=== PATIENT | male | born 1970 | race Caucasian/White ===

== ENCOUNTER 2016-09-10 18:58 | Emergency (ER) | payer MEDICARE ==
[~2016-09-10] VITALS: Ht 193 cm; Wt 72.5 kg
[~2016-09-10 18:58] MED LIST: CLIN-73 PO; IBUP-1542 PO; PERP8TAB PO; QUET400T PO
[2016-09-10 19:32] VITALS: Ht 193 cm; Wt 72.5 kg
[2016-09-10] MEDS ORDERED: PERP8TAB PO (19:57)
[2016-09-10] MEDS ORDERED: QUET400T PO (19:57)
--- NOTE | 2016-09-10 20:03 | ERD ---
ER Documentation Chief Complaint Date/Time DATE: 09/10/16 TIME: 20:00 Chief Complaint medication refill HPI 46-year-old male presents here in emergency department for medication refill, history of depression, is running out of his Seroquel and Perphenazine, patient denies any suicidal or homicidal ideation. Patient denies any other symptoms. Patient denies any hallucination or delusion. ROS All systems reviewed and are negative except as per history of present illness. Medications Home Meds Active Scripts Quetiapine Fumarate* (Seroquel*) 400 Mg Tablet, 400 MG PO DAILY, #20 TAB Prov:ROGER HARPER OPTHALMIC TECH 09/10/16 Perphenazine* (Perphenazine*) 8 Mg Tablet, 8 MG PO BID, #20 TAB Prov:ROGER HARPER OPTHALMIC TECH 09/10/16 Quetiapine Fumarate* (Seroquel*) 400 Mg Tablet, 400 MG PO QHS, #20 TAB Prov:LIORUMU C 04/24/16 Ibuprofen* (Ibuprofen*) 600 Mg Tablet, 600 MG PO Q6 for 5 Days, TAB Prov:LIOR,UMU C 04/24/16 Clindamycin Hcl* (Clindamycin Hcl*) 300 Mg Capsule, 300 MG PO TID for 10 Days, CAP Prov:LIOR,UMU C 04/24/16 Allergies Allergies: Coded Allergies: aspirin (Verified Allergy, Mild, HEADACHE SWELLING, 09/10/16) PMhx/Soc History of Surgery: Yes (right knee surgery) Anesthesia Reaction: No Hx Neurological Disorder: No Hx Respiratory Disorders: No Hx Cardiac Disorders: No Hx Psychiatric Problems: Yes (schizoaffective behavior and depression) Hx Miscellaneous Medical Probl: Yes (PARANOIA) Hx Alcohol Use: Yes Hx Substance Use: Yes Hx Tobacco Use: Yes FmHx Family History: No coronary disease, No diabetes, No other Physical Exam Vitals Vital Signs Date Time Temp Pulse Resp B/P Pulse Ox O2 Delivery O2 Flow Rate FiO2 09/10/16 19:32 98.5 92 20 136/83 98 Physical Exam GENERAL: The patient is well developed and appropriate for usual state of health, in no apparent distress. CHEST: Clear to auscultation bilaterally. There are no rales, wheezes or rhonchi. HEART: Regular rate and rhythm. No murmurs, clicks, rubs or gallops. No S3 or S4. ABDOMEN: Soft, nontender and nondistended. Good bowel sounds. No rebound or guarding. No gross peritonitis. No gross organomegaly or masses. No Molina sign or McBurney point tenderness. BACK: No midline or flank tenderness. EXTREMITIES: Equal pulses bilaterally. There is no peripheral clubbing, cyanosis or edema. No focal swelling or erythema. Full range of motion. Grossly neurovascularly intact. NEURO: Alert and oriented. Cranial nerves 2-12 intact. Motor strength in all 4 extremities with 5/5 strength. Sensation grossly intact. Normal speech and gait. SKIN: There is no apparent rash or petechia. The skin is warm and dry. HEMATOLOGIC AND LYMPHATIC: There is no evidence of excessive bruising or lymphedema. No gross cervical, axillary, or inguinal lymphadenopathy. PSYCHIATRIC: Patient is calm and cooperative. No verbalization of homicidal or suicidal ideations. Procedures/MDM Medical decision making: Patient is here for medication refill, this time, no symptoms of any psychiatric emergencies, patient is stable, patient does not verbalize homicidal or suicidal ideation. Patient has normal affect. Acting appropriately at this time. Patient was given for 20 day supply of Seroquel and perphenazine, is advised to see a certified legal secretary specialist within 1-2 days or further medication management and referral. Patient was advised to return to emergency department for homicidal or suicidal ideations, hallucinations delusions, any other worsening symptoms. Disposition: Home. Stable. Departure Diagnosis: Primary Impression: Encounter for medication refill Additional Impression: History of depression Condition: Stable Patient Instructions: Taking Medicine Safely, Quetiapine Fumarate Oral tablet Referrals: [facility] YOU HAVE RECEIVED A MEDICAL SCREENING EXAM AND THE RESULTS INDICATE THAT YOU DO NOT HAVE A CONDITION THAT REQUIRES URGENT TREATMENT IN THE EMERGENCY DEPARTMENT. FURTHER EVALUATION AND TREATMENT OF YOUR CONDITION CAN WAIT UNTIL YOU ARE SEEN IN YOUR DOCTORS OFFICE WITHIN THE NEXT 1-2 DAYS. IT IS YOUR RESPONSIBILITY TO MAKE AN APPOINTMENT FOR FOLOW-UP CARE. IF YOU HAVE A PRIMARY DOCTOR --you should call your primary doctor and schedule an appointment IF YOU DO NOT HAVE A PRIMARY DOCTOR YOU CAN CALL OUR PHYSICIAN REFERRAL HOTLINE AT IF YOU CAN NOT AFFORD TO SEE A PHYSICIAN YOU CAN CHOSE FROM THE FOLLOWING [facility] [address] [facility] [address] [facility] [address] [facility] [address] [facility] [address] [facility] [address] [facility] YOU HAVE RECEIVED A MEDICAL SCREENING EXAM AND THE RESULTS INDICATE THAT YOU DO NOT HAVE A CONDITION THAT REQUIRES URGENT TREATMENT IN THE EMERGENCY DEPARTMENT. FURTHER EVALUATION AND TREATMENT OF YOUR CONDITION CAN WAIT UNTIL YOU ARE SEEN IN YOUR DOCTORS OFFICE WITHIN THE NEXT 1-2 DAYS. IT IS YOUR RESPONSIBILITY TO MAKE AN APPOINTMENT FOR FOLOW-UP CARE. IF YOU HAVE A PRIMARY DOCTOR --you should call your primary doctor and schedule and appointment IF YOU DO NOT HAVE A PRIMARY DOCTOR YOU CAN CALL OUR PHYSICIAN REFERRAL HOTLINE AT . IF YOU CAN NOT AFFORD TO SEE A PHYSICIAN YOU CAN CHOSE FROM THE FOLLOWING [facility] INSTITUTIONS: [facility] [address] [place] [address] [facility] [address] [place] [address] [facility] [address] [place] [address] ROGER HARPER NP September 10, 2016 20:03
== END 2016-09-10 20:02 | disposition home or self-care (01) ==
LOC: E/R 18:58
DX: Z76.0 Encounter for issue of repeat prescription (principal); F17.210 Nicotine dependence, cigarettes, uncomplicated; Z86.59 Personal history of other mental and behavioral disorders

== ENCOUNTER 2016-09-30 01:11 | Emergency (ER) | payer MEDICARE ==
[~2016-09-30] VITALS: Ht 193 cm; Wt 69.5 kg
[2016-09-30 01:31] VITALS: Ht 193 cm; Wt 69.5 kg
--- NOTE | 2016-09-30 02:21 | ERA ---
ER Documentation Chief Complaint Date/Time DATE: 09/30/16 TIME: 02:20 Chief Complaint Suicidal HPI The patient is a 46-year-old male, presenting to the ER because of suicidal ideation, hallucination. He does not have any plan, denies suicidal ideation. He denies headache, neck pain, chest pain, abdominal pain, vomiting dysuria, diarrhea. He has not been taking his medication Past medical history: Bipolar ROS All systems reviewed and are negative except as per history of present illness. Medications Home Meds Active Scripts Quetiapine Fumarate* (Seroquel*) 400 Mg Tablet, 400 MG PO DAILY, #20 TAB Prov:ROGER HARPER UPSETTER HELPER 09/10/16 Perphenazine* (Perphenazine*) 8 Mg Tablet, 8 MG PO BID, #20 TAB Prov:ROGER HARPER. UPSETTER HELPER 09/10/16 Discontinued Scripts Quetiapine Fumarate* (Seroquel*) 400 Mg Tablet, 400 MG PO QHS, #20 TAB Prov:UMU TINAJERO C 04/24/16 Ibuprofen* (Ibuprofen*) 600 Mg Tablet, 600 MG PO Q6 for 5 Days, TAB Prov:LIOR,UMU C 04/24/16 Clindamycin Hcl* (Clindamycin Hcl*) 300 Mg Capsule, 300 MG PO TID for 10 Days, CAP Prov:LIORUMU C 04/24/16 Allergies Allergies: Coded Allergies: aspirin (Unverified Allergy, Mild, HEADACHE SWELLING, 09/30/16) PMhx/Soc History of Surgery: Yes (right knee surgery) Anesthesia Reaction: No Hx Neurological Disorder: No Hx Respiratory Disorders: No Hx Cardiac Disorders: No Hx Psychiatric Problems: Yes (schizoaffective behavior and depression) Hx Miscellaneous Medical Probl: Yes (PARANOIA) Hx Alcohol Use: Yes Hx Substance Use: Yes Hx Tobacco Use: Yes Physical Exam Vitals Vital Signs Date Time Temp Pulse Resp B/P Pulse Ox O2 Delivery O2 Flow Rate FiO2 09/30/16 01:31 97.8 86 20 148/94 93 Physical Exam Const: No acute distress. Unkempt Head: Atraumatic. Eyes: Normal Conjunctiva. ENT: Normal External Ears, Nose and Mouth. Neck: Full range of motion. No meningismus. Resp: Clear to auscultation bilaterally. Cardio: Regular rate and rhythm, no murmurs. Abd: Soft, non distended, normal bowel sounds, non tender. Skin: No petechiae or rashes. Back: No midline or flank tenderness. Ext: No cyanosis, or edema. Neur: Awake and alert. No focal deficit Psych: Normal Mood and Affect. Result Diagram: 09/30/16 0301 09/30/16 0301 Results 24 hrs Laboratory Tests Test 09/30/16 03:01 White Blood Count 7.010^3/ul Red Blood Count 4.6710^6/ul Hemoglobin 13.7g/dl Hematocrit 42.9% Mean Corpuscular Volume 91.9fl Mean Corpuscular Hemoglobin 29.3pg Mean Corpuscular Hemoglobin Concent 31.9g/dl Red Cell Distribution Width 14.3% Platelet Count 80241^3/UL Mean Platelet Volume 8.9fl Neutrophils % 53.1% Lymphocytes % 31.2% Monocytes % 11.4% Eosinophils % 3.6% Basophils % 0.6% Nucleated Red Blood Cells % 0.0/100WBC Neutrophils # 3.710^3/ul Lymphocytes # 2.210^3/ul Monocytes # 0.810^3/ul Eosinophils # 0.310^3/ul Basophils # 0.010^3/ul Nucleated Red Blood Cells # 0.010^3/ul Sodium Level 141mmol/L Potassium Level 3.9mmol/L Chloride Level 105mmol/L Carbon Dioxide Level 31mmol/L Anion Gap 9 Blood Urea Nitrogen 22mg/dl Creatinine 0.77mg/dl Glucose Level 101mg/dl Calcium Level 9.2mg/dl Total Bilirubin 0.2mg/dl Direct Bilirubin 0.00mg/dl Indirect Bilirubin 0.2mg/dl Aspartate Amino Transf (AST/SGOT) 27IU/L Alanine Aminotransferase (ALT/SGPT) 36IU/L Alkaline Phosphatase 144IU/L Total Protein 8.1g/dl Albumin 4.2g/dl Globulin 3.90g/dl Albumin/Globulin Ratio 1.07 Salicylates Level < 1.0mg/dl Acetaminophen Level < 10.0ug/ml Ethyl Alcohol Level < 10.0mg/dl Procedures/MDM MEDICAL MAKING DECISION: The patient is a 46-year-old male, presenting to the ER because of acute suicidal ideation, acute psychosis. The differential diagnoses considered include but are not limited to psychosis, drug-induced psychosis, decompensated psychiatric illness Departure Diagnosis: Primary Impression: Suicidal ideation Additional Impressions: Psychosis Anemia Condition: Stable Comments I discussed the patient with the on-call telepsychiatrist Dr. Munson, who evaluated the patient and recommended [id number] ABEL BROOKS MD September 30, 2016 02:21
[2016-09-30 03:07] LABS: ADD SCAN DIFF NO
[2016-09-30 03:09] LABS: BASOPHILS % 0.6 % (0.0-2.0); EOSINOPHILS # 0.3 10^3/ul (0.0-0.5); EOSINOPHILS % 3.6 % (0.0-7.0); HEMATOCRIT 42.9 % (42.0-52.0); HEMOGLOBIN 13.7 g/dl (14.0-18.0); LYMPHOCYTES # 2.2 10^3/ul (0.8-2.9); LYMPHOCYTES % 31.2 % (15.0-51.0); MEAN CORPUSCULAR HEMOGLOBIN 29.3 pg (29.0-33.0); MEAN CORPUSCULAR HGB CONC 31.9 g/dl (32.0-37.0); MEAN CORPUSCULAR VOLUME 91.9 fl (82.0-101.0); MEAN PLATELET VOLUME 8.9 fl (7.4-10.4); MONOCYTE # 0.8 10^3/ul (0.3-0.9); MONOCYTES % 11.4 % (0.0-11.0); NEUTROPHIL # 3.7 10^3/ul (1.6-7.5); NEUTROPHILS % 53.1 % (39.0-77.0); PLATELET COUNT 320 10^3/UL (140-415); RED BLOOD COUNT 4.67 10^6/ul (4.70-6.10); RED CELL DISTRIBUTION WIDTH 14.3 % (11.5-14.5)
[2016-09-30 03:28] LABS: ALBUMIN 4.2 g/dl (3.3-4.9); CHLORIDE 105 mmol/L (97-110)
[2016-09-30 03:29] LABS: POTASSIUM 3.9 mmol/L (3.5-5.1); SODIUM 141 mmol/L (135-144)
[2016-09-30 03:31] LABS: ALANINE AMINOTRANSFERASE 36 IU/L (13-69); ALBUMIN/GLOBULIN RATIO 1.07; ALKALINE PHOSPHATASE 144 IU/L (42-121); ANION GAP 9 (8-16); ASPARTATE AMINO TRANSFERASE 27 IU/L (15-46); BILIRUBIN,INDIRECT 0.2 mg/dl (0-1.1); BILIRUBIN,TOTAL 0.2 mg/dl (0.2-1.3); BLOOD UREA NITROGEN 22 mg/dl (7-20); CARBON DIOXIDE 31 mmol/L (21-31); CREATININE 0.77 mg/dl (0.61-1.24); TOTAL PROTEIN 8.1 g/dl (6.1-8.1)
[2016-09-30 03:32] LABS: CALCIUM 9.2 mg/dl (8.4-10.2); GLUCOSE 101 mg/dl (70-220)
[2016-09-30 03:33] LABS: ACETAMINOPHEN < 10.0 ug/ml (10.0-30.0); ETHANOL < 10.0 mg/dl; SALICYLATE < 1.0 mg/dl (5.0-30.0)
[2016-09-30 04:41] LABS: URINE BILIRUBIN (Dip) NEGATIVE (NEGATIVE); URINE COLOR LT. YELLOW (YELLOW); URINE GLUCOSE (Dip) NEGATIVE (NEGATIVE); URINE KETONES (Dip) NEGATIVE (NEGATIVE); URINE LEUKOCYTE ESTERASE (Dip) NEGATIVE (NEGATIVE); URINE NITRITE (Dip) NEGATIVE (NEGATIVE); URINE TOTAL PROTEIN (Dip) NEGATIVE (NEGATIVE); URINE UROBILINOGEN (Dip) 1.0 E.U./dL (0.1-1.0)
[2016-09-30 04:48] LABS: ADD UMIC NO; URINE BLOOD (Dip) NEGATIVE (NEGATIVE)
[2016-09-30 05:04] LABS: BARBITURATES NEGATIVE (NEGATIVE); BENZODIAZEPINES NEGATIVE (NEGATIVE); CANNABINOIDS POSITIVE (NEGATIVE); COCAINE NEGATIVE (NEGATIVE); OPIATES NEGATIVE (NEGATIVE)
--- NOTE | 2016-09-30 06:22 | PSY ---
Date/Time of Note Date/Time of Note DATE: 09/30/16 TIME: 04:27 Psychiatric Subjective Eval Consent Pt consented to telemedicine: Yes Subjective Evaluation Patient location: emergency Chief Complaint: depressed, tremors, hearing voices, denies si/hi Reason for consult: suicidal ideation History of present illness patient is a 46 yo male homeless with PPH of depression and anxiety who came to the ER due to feeling suicidal, he states that he wants to cut himself or run into traffic, states that he has been feeling depressed, hopeless and helpless due to homelessness, states that he hears voices telling him to kill himself, he has been feeling anxious, and irritable and unable to fall asleep, denies any HI, no drug or alcohol use beside thc. Past psychiatric history past suicidal attempt yes Medical history Problems Medical Problems: (1) Dental abscess Status: Acute (2) Dental abscess Status: Acute (3) Encounter for medication refill Status: Acute (4) Hallucinations Status: Acute (5) History of depression Status: Acute (6) Suicidal ideation Status: Acute Allergies: Coded Allergies: aspirin (Unverified Allergy, Mild, HEADACHE SWELLING, 09/30/16) Substance Abuse Substance use: No known substance abuse Social History Marital status: single Level of education: hs DPA/Conservatorship: No Occupation/Correction: unemployed Psychiatric Objective Eval Review of Systems: Review of Systems: Not Applicable Physical Examination: Physical Examination: Applicable Sleep: Insomnia Appetite: Decreased Energy: Decreased Interest: Decreased Mental Status Examination: Appearance: Disheveled Eye Contact: Fair Psychomotor Activity: Normal Behavior: Cooperative Speech: Disorganized AFFECT: Depressed Mood: Depressed Though Process: Loose Thought Content: Hallucinations Suicidal: Yes Homicidal: No On 72 hour hold: No Orientation: x2 Cognition: Drowsy Insight: Impared Judgement: Impared Attention Span: Distractible Laboratory Results Laboratory Tests Test 09/30/16 03:01 White Blood Count 7.010^3/ul Red Blood Count 4.6710^6/ul Hemoglobin 13.7g/dl Hematocrit 42.9% Mean Corpuscular Volume 91.9fl Mean Corpuscular Hemoglobin 29.3pg Mean Corpuscular Hemoglobin Concent 31.9g/dl Red Cell Distribution Width 14.3% Platelet Count 26588^3/UL Mean Platelet Volume 8.9fl Neutrophils % 53.1% Lymphocytes % 31.2% Monocytes % 11.4% Eosinophils % 3.6% Basophils % 0.6% Nucleated Red Blood Cells % 0.0/100WBC Neutrophils # 3.710^3/ul Lymphocytes # 2.210^3/ul Monocytes # 0.810^3/ul Eosinophils # 0.310^3/ul Basophils # 0.010^3/ul Nucleated Red Blood Cells # 0.010^3/ul Sodium Level 141mmol/L Potassium Level 3.9mmol/L Chloride Level 105mmol/L Carbon Dioxide Level 31mmol/L Anion Gap 9 Blood Urea Nitrogen 22mg/dl Creatinine 0.77mg/dl Glucose Level 101mg/dl Calcium Level 9.2mg/dl Total Bilirubin 0.2mg/dl Direct Bilirubin 0.00mg/dl Indirect Bilirubin 0.2mg/dl Aspartate Amino Transf (AST/SGOT) 27IU/L Alanine Aminotransferase (ALT/SGPT) 36IU/L Alkaline Phosphatase 144IU/L Total Protein 8.1g/dl Albumin 4.2g/dl Globulin 3.90g/dl Albumin/Globulin Ratio 1.07 Salicylates Level < 1.0mg/dl Acetaminophen Level < 10.0ug/ml Ethyl Alcohol Level < 10.0mg/dl Assessment and Plan Assessment/Diagnosis [place] I: psychosis nos mood do nos [place] II: deferred [place] III: as per record [place] IV: homeless [place] V: gaf 25 Recommendation/Plan Follow-up/Disposition Patient needs unvoluntary admission due to danger to self In my opinion, patient currently MEETS criterion for inpatient care and CANNOT be safely treated at a lower level of care today as evidenced by the following risk factors: Current Suicidal Ideation. Previous suicide attempt or severe self-destructive behavior. Intense feelings of hopelessness and/or lack of future orientation. Non-Compliance with Outpatient Treatment. Command hallucinations with violent content. Significant recent DETERIORATION in function, behavior and thought processes [id number] Recommendation: CHAPARRO Gresham MD September 30, 2016 06:22
[2016-09-30 13:30] VITALS: BP 148/87; PULSE 83; RESP 16; TEMP 97.9
== END 2016-09-30 13:39 ==
LOC: E/R 01:11
DX: F29 Unspecified psychosis not due to a substance or known physiological condition (principal); R45.851 Suicidal ideations; D64.9 Anemia, unspecified; R40.2142 Coma scale, eyes open, spontaneous, at arrival to emergency department; R40.2252 Coma scale, best verbal response, oriented, at arrival to emergency department; R40.2362 Coma scale, best motor response, obeys commands, at arrival to emergency department; Z87.891 Personal history of nicotine dependence
CPT/HCPCS: 36415; 80053; 80306; 80307; 81003; 85025